=== PATIENT | female | born 1995 | race African-American/Black ===

== ENCOUNTER 2021-03-24 12:15 | Emergency (ER) | payer BC, MEDICAID ==
[~2021-03-24] VITALS: Ht 175.3 cm; Wt 86.4 kg
[2021-03-24 12:29] VITALS: BP 102/64
[2021-03-24] MEDS ORDERED: IBUPROFEN 600 MG TABLET PO ONE (13:30)
== END 2021-03-24 13:56 | disposition home or self-care (01) ==
LOC: EMS 12:15
DX: M25.511 Pain in right shoulder (principal)
CPT/HCPCS: 99282; Z7502; Z7610